=== PATIENT | female | born 1985 | race African-American/Black ===

== ENCOUNTER 2023-01-23 09:13 | Emergency (ER) | payer MEDICAID ==
[~2023-01-23] VITALS: Ht 167.6 cm; Wt 75.0 kg
[2023-01-23 09:20] VITALS: TEMP 98.3; O2SAT 100
[2023-01-23] MEDS ORDERED: PSEU120T56 MT (10:27)
[2023-01-23] MEDS ORDERED: IBUP-2029 MT (10:27)
[2023-01-23 10:58] VITALS: BP 116/83; PULSE 100; RESP 15
== END 2023-01-23 10:59 | disposition home or self-care (01) ==
LOC: ER 09:35
DX: J06.9 Acute upper respiratory infection, unspecified (principal); R09.81 Nasal congestion; Z20.822 Contact with and (suspected) exposure to COVID-19
CPT/HCPCS: 99284; 71045; 87426; 87804 ×2; C9803

== ENCOUNTER 2023-04-21 17:58 | Emergency (ER) | payer MEDICAID, OTHER ==
[~2023-04-21] VITALS: Ht 167.6 cm; Wt 72.0 kg
[~2023-04-21 17:58] MED LIST: IBUP-2029 MT; PSEU120T56 MT
[2023-04-21 20:04] LABS: BASOPHILS % 0.7 % (0.0-2.0); EOSINOPHILS % 2.8 % (0.0-5.0); HEMATOCRIT. 34.4 % (36.0-48.0); HEMOGLOBIN. 11.1 g/dL (12.0-16.0); LYMPHOCYTES % 18.1 % (20.0-50.0); MEAN CORPUSCULAR HEMOGLOBIN 26.3 pg (28.0-32.0); MEAN CORPUSCULAR HGB CONC 32.1 g/dL (31.0-37.0); MEAN CORPUSCULAR VOLUME 81.9 fL (81.0-99.0); MEAN PLATELET VOLUME 9.9 fl (7.4-10.4); MONOCYTES % 12.9 % (2.0-8.0); NEUTROPHILS % 65.5 % (40.0-76.0); PLATELET 221 x1000/uL (130-400); RED BLOOD CELL COUNT 4.21 mill/uL (4.2-5.4); RED CELL DISTRIBUTION WIDTH 14.1 % (11.6-14.6); WHITE BLOOD COUNT 8.6 x1000/uL (4.5-11.0)
[2023-04-21 20:15] LABS: ALANINE AMINOTRANSFERASE 25 IU/L (10-49); ALBUMIN 4.6 g/dL (3.2-4.8); ASPARTATE AMINOTRANSFERASE 27 IU/L (<34); BILIRUBIN TOTAL 0.5 mg/dL (0.1-1.0); CARBON DIOXIDE 24 mEq/L (21-32); CHLORIDE 107 mEq/L (98-107); CREATININE 0.9 mg/dL (0.6-1.0); GLUCOSE 94 mg/dL (70-105); POTASSIUM 4.2 mEq/L (3.5-5.1); PROTEIN TOTAL 8.1 g/dL (6.0-8.3); SODIUM 136 mEq/L (136-145); UREA NITROGEN BLOOD 10 mg/dL (9-23)
[2023-04-21 20:16] LABS: TROPONIN I HIGH SENSITIVITY < 4 ng/L (3.0-34)
[2023-04-21 20:24] LABS: CLARITY URINE CLEAR (CLEAR); COLOR URINE YELLOW (YELLOW); GLUCOSE URINE NEGATIVE (NEGATIVE); KETONES URINE NEGATIVE (NEGATIVE); LEUKOCYTE ESTERASE URINE 1+ (NEGATIVE); NITRITE URINE NEGATIVE (NEGATIVE); OCCULT BLOOD URINE NEGATIVE (NEGATIVE); PH URINE 6.5 (4.5-8.0); PROTEIN URINE NEGATIVE (NEGATIVE)
[2023-04-21 21:10] LABS: BACTERIA URINE 2+; RBC URINE 0-2 /hpf (0-2); SQUAMOUS EPITHELIAL CELL URINE 1+ /lpf (RARE/1+)
[2023-04-21] MEDS: PREDNISONE 20MG TABLET PO STA (22:34)
[2023-04-21] MEDS: MAGNESIUM/ALUMINUM HYDROXIDE/SIMETHICONE 30ML UDC PO ONE (22:38)
[2023-04-21] MEDS ORDERED: FAMO-135 MT (22:53)
[2023-04-21] MEDS ORDERED: ALBU6.7H15 INH (22:53)
[2023-04-21] MEDS: ALBUTEROL (0.083%) 2.5MG/3ML NEB HHN STA (22:55)
[2023-04-21 22:56] VITALS: PULSE 83; RESP 14; O2SAT 98
[2023-04-21] MEDS: IPRATROPIUM BROMIDE (0.02%) 0.5MG/2.5ML NEB HHN STA (22:56)
[2023-04-21] MEDS ORDERED: TUSSL MT (22:57)
[2023-04-22 00:02] VITALS: BP 132/82; PULSE 95; RESP 18; TEMP 98.2
== END 2023-04-22 00:06 | disposition home or self-care (01) ==
LOC: ER 17:58
DX: K21.9 Gastro-esophageal reflux disease without esophagitis (principal); J45.909 Unspecified asthma, uncomplicated; J20.9 Acute bronchitis, unspecified
CPT/HCPCS: 80053; 81003; 81025; 85025; 84484; 36415; 71045; 94640; 93005; 99285; J7512; Z7610 ×3

== ENCOUNTER 2024-08-16 12:18 | Emergency (ER) | payer MEDICAID ==
[~2024-08-16] VITALS: Ht 167.6 cm; Wt 79.0 kg
[~2024-08-16 12:18] MED LIST changes: +ALBU6.7H15 INH; +FAMO-135 MT; +TUSSL MT
[2024-08-16 12:29] VITALS: O2SAT 98
[2024-08-16] MEDS ORDERED: ACETAMINOPHEN 325MG TABLET PO STA (15:42)
[2024-08-16] MEDS: ACETAMINOPHEN 325MG TABLET PO STA (16:18)
[2024-08-16] MEDS ORDERED: NAPR-681 PO (17:22)
[2024-08-16] MEDS ORDERED: D-ME473S50 PO (17:22)
[2024-08-16 17:40] VITALS: BP 127/75; PULSE 100; RESP 18; TEMP 36.8; O2SAT 98
== END 2024-08-16 17:41 | disposition home or self-care (01) ==
LOC: ER 12:18
DX: J20.9 Acute bronchitis, unspecified (principal); R51.9 Headache, unspecified; Z79.899 Other long term (current) drug therapy; Z20.822 Contact with and (suspected) exposure to COVID-19
CPT/HCPCS: 71045; 87426; 99284